=== PATIENT | female | born 1975 | race Caucasian/White ===

== ENCOUNTER → 2019-05-13 14:16 | Outpatient (BNVA) | payer MEDICAID, SELFPAY | PROVIDERS: Visit Provider Family Medicine | DX: L67.8 Other hair color and hair shaft abnormalities (principal) | CPT/HCPCS: 84403; 84443 ==

== ENCOUNTER → 2020-02-02 15:15 | Outpatient (BNVA) | payer MEDICAID, SELFPAY | PROVIDERS: Visit Provider Nurse Practitioner Family | DX: N39.0 Urinary tract infection, site not specified (principal) | CPT/HCPCS: 80053; 81003; 81025; 87077; 87086; 87184 ==

== ENCOUNTER 2020-02-04 12:54 | Emergency (ER) | payer MEDICAID, SELFPAY ==
[2020-02-04 12:56] VITALS: BP 126/77; RESP 18; TEMP 36.8; O2SAT 100; BMI 34.9
[2020-02-04 13:35] LABS: Add Urine Microscopic? YES; Bilirubin Urine Neg (Negative); Blood Urine 2+ (Negative); Glucose Urine UA Norm (Normal); Ketones Urine Negative (Negative); Leukocyte Esterase Urine Trace (Negative); Nitrate Urine Negative (Negative); Protein Urine Neg (Negative); Specific Gravity, Urine 1.025 (1.005-1.030); Urine Appearance Hazy (CLEAR); Urine Color Yellow (Yellow); Urobilinogen Urine Norm (Negative); pH Urine 5 (5-7)
--- NOTE | 2020-02-04 13:43 | ED_ITS ---
HPI - Abdominal Pain General: Chief Complaint: Abdominal Pain Stated Complaint: uti/abdominal pain Time Seen by Provider: 02/04/20 13:42 History of Present Illness: HPI narrative: 44-year-old female patient presents to the emergency department with left flank pain x 5 days. Last menstrual period 01/27/2020, previous menstrual period 12/28/2019, states previous 2 periods have only lasted several days and have been light in nature. She reports saw her primary care provider Sunday, 3 days ago, positive test, completed secondary to light menstrual cycles. Treated for urinary tract infection recently with Bactrim, stopped the medication secondary to results and Rx'd Keflex. She has history of kidney stones, reports intense left flank pain similar to previous episodes. 5 para 3 AB 1 MD elicited complaint: abdominal pain and flank pain (Left) Pertinent past history: kidney stones Onset (ago): day(s) Pain Consistency: intermittent Location: LLQ and L flank Severity: moderate Quality: cramping, stabbing and aching Radiation: LLQ and L flank Exacerbating factors: nothing Relieving factors: nothing Associated Symptoms: Reports chills, GI cramping, fever(s), nausea, vomiting and other (vaginal bleeding - light x 2 days); Denies dysuria Review of Systems General: Reports: 10 or more systems reviewed and unremarkable except in HPI and below Const: Reports: fever(s) and chills; Denies: diaphoresis Eyes: Denies: blurry vision or eye redness ENMT: Denies: throat pain, dental pain or disequilibrium Card: Denies: chest pain, palpitations or irregular heart rhythm Resp: Denies: dyspnea, productive cough, non-productive cough or wheezing GI: Reports: abdominal pain, nausea, vomiting, GI cramping and other (vaginal bleeding - light x 2 days) : Reports: flank pain (left), urinary urgency, vaginal bleeding and change in menstrual flow; Denies: difficulty voiding or dysuria Musc: Denies: back pain Skin/Breast: Denies: rash or pruritus Neuro: Denies: headache(s), weakness in extremities or behavioral changes [place]/Lymph: Denies: easy bruising PFSH ED PFSH: Medical History (Updated 02/04/20 @ 17:29 by YOLANDA Ortiz) History of asthma History of renal calculi Normal Pap smear 12/2017 Surgical History Hx of lithotripsy Family History Other Myocardial infarction Social History Smoking and tobacco status: never smoked Second hand smoke exposure: No Alcohol intake: current Alcohol intake frequency: holidays/special occasions only Lives independently: Yes Marital status: History of recent travel: No Current gender identity: Female Physical Exam Const: COMMON NORMALS: no acute distress, patient oriented x3, healthy appearing and alert GENERAL APPEARANCE: cooperative, well kempt and well hydrated ORIENTATION/CONSCIOUSNESS: Yes awake, Yes oriented to person, Yes oriented to place and Yes oriented to time HENMT: COMMON NORMALS: normocephalic, Normal external nose present and moist oral mucous membranes HEAD & SCALP: normocephalic NOSE: Normal external nose present Eye: COMMON NORMALS: Equal, round and reactive pupils present and EOMs intact bilaterally GENERAL EYE: appearance normal, both eyes and all related structures PUPIL: Yes Equal, round and reactive pupils present Neck/C-Spine: COMMON NORMALS: full ROM and no lymphadenopathy GENERAL: Yes normal visual inspection and Yes trachea midline CERVICAL SPINE: Yes cervical ROM normal Lymph: LYMPHATIC: no lymphadenopathy noted Chest: COMMONS NORMALS: normal inspection of the chest Resp: COMMON NORMALS: normal respiratory effort and clear to auscultation bilaterally EFFORT & INSPECTION: Yes able to speak in complete sentences AUSCULTATION: clear to auscultation bilaterally Cardio: COMMON NORMALS: regular rhythm, S1 normal heart sound present, S2 normal heart sound present and Peripheral pulses 2+ throughout RHYTHM: regular rhythm HEART SOUNDS: S1 normal heart sound present and S2 normal heart sound present PERIPHERAL PULSES: Peripheral pulses 2+ throughout GI: COMMON NORMALS: Soft to palpation and non-tender INSPECTION: Yes normal to inspection PALPATION: Yes Soft to palpation and Yes Firmness to palpation present (GI) : COMMON NORMALS: Yes normal external appearance, Yes normal appearance of the vagina and Yes normal bimanual exam BLADDER/KIDNEY EXAM: Yes bladder normal to palpation EXTERNAL FEMALE EXAM: Yes normal appearance of the urethra SPECULUM EXAM - VAGINA: No laceration, No lesion, Yes vaginal bleeding (spotting) Amount: spotting and No tenderness SPECULUM EXAM - CERVIX: Yes Cervical os closed, Yes mucoid cervix and No Cervical tenderness present BIMANUAL EXAM - VAGINA & UTERUS: Yes normal bimanual exam, Yes normal palpation, Yes normal palpation, No cervical motion tenderness, No Cervical tenderness present, Yes bladder normal to palpation, Yes non-tender and No Uterine tenderness OB/EXTERNAL & SPECULUM: vaginal bleeding (spotting) Back/Pelvis: COMMON NORMALS: thoracic and lumbar spine normal to inspection Extremity: COMMON NORMALS: normal to inspection and capillary refill normal Neuro: COMMON NORMALS: patient oriented x3 and no focal motor deficits SENSORIUM/ORIENTATION: Yes alert, Yes oriented to person, Yes oriented to place and Yes oriented to time Psych: COMMON NORMALS: mental status grossly normal, Normal thought process present and cooperative APPEARANCE: Yes well kempt ACTIVITY/MOTOR BEHAVIOR: Yes appropriate eye contact THOUGHT PROCESS: Normal thought process present Skin: COMMON NORMALS: no rashes or lesions noted and turgor normal GENERAL SKIN EXAM: no rashes or lesions noted and turgor normal Course ED course: 44 year old presents to the clinic with left flank pain, vag bleeding, + with LMP 01/27/2020. H/O renal stones, renal US normal w/o hydronephrosis, treated with Rocephin in the ED for UTI. OB US w/o interuterine gestation identified. B-HCG 145 - early vs ectopic not ruled out - n/v and pain controlled with Zofran and Morphine - able to tolerate PO fluids in the ED - feeling better - discussion with patient with findings and plan, agrees to f/u with Dr Burnett in 2 days for repeat serology for B-HCG. UTI treated with IV Rocephin due to initial UA results (clean catch), cath UA resulted w/o leukoestrace/bacteria. She agrees to return to the ED for increased vaginal bleeding, flank pain/vomiting not controlled with hydrocodone or Zofran. Case d/w Dr Carlos, Rx for hydrocodone given. Will treat with Omnicef for UTI. Consultations: Consultation #1: Dr Burnett, [place] - case d/w Dr Burnett - results of pelvic and renal US with serology testing reviewed - advised to have patient f/u in clinic in 2 days for repeat HcGQuant. Advised patient to refrain from strenuous activity and sex until cleared - she will need f/u every 2 days until BHcg is >1500. Advised to treat UTI and strain urine - control pain. Vital Signs: Vital signs: Vital Signs Temperature 98.2 F 02/04/20 12:56 Pulse Rate 110 H 02/04/20 13:57 Respiratory Rate 18 02/04/20 17:17 Blood Pressure 146/107 02/04/20 16:50 Pulse Oximetry 100 02/04/20 16:50 MDM - Abdominal Pain Lab Data: Labs: Lab Results 02/04/20 02/04/20 02/04/20 Range/Units 13:10 13:36 13:36 WBC (4.0-10.0) 10^3/ uL RBC (4.1-5.3) 10^6/u L Hgb (11.5-15.3) g/dL Hct (37.0-47.0) % MCV (81-99) fL MCH (28.0-34.0) pg MCHC (30.0-36.0) g/dL RDW (12.1-15.1) % Plt Count (130-400) 10^3/c mm MPV (7.4-10.4) fL Neut % (Auto) % Lymph % (Auto) % [place] % (Auto) % Eos % (Auto) % Baso % (Auto) % Neut # (Auto) (1.8-7.7) 10^3/u L Lymph # (Auto) (0.8-4.8) 10^3/u L [place] # (Auto) (0.2-0.9) 10^3/u L Eos # (Auto) (0.0-0.8) 10^3/u L Baso # (Auto) (0.0-0.1) 10^3/u L Nucleated RBC % (a uto) % Nucleated RBCs # /100WBC Sodium 135 L (136-145) mmol/L Potassium 3.8 (3.5-5.1) mmol/L Chloride 100 (98-107) mmol/L Carbon Dioxide 20 L (22-29) mmol/L Anion Gap 18.8 (5-19) BUN 7 (6-20) mg/dL Creatinine 0.8 (0.5-0.9) mg/dL GFR Calculation 78.3 L (90-130) mL/min Glucose 125 H (65-115) mg/dL Calculated Osmolal ity 279 L (285-295) mOsm/k g Calcium 9.5 (8.5-10.5) mg/dL Total Bilirubin 0.3 (0.15-1.2) mg/dL AST 16 (0-32) U/L ALT 21 (0-33) U/L Alkaline Phosphata se 114 H (35-105) IU/L Total Protein 8.2 (6.6-8.7) g/dL Albumin 4.4 (3.5-5.2) g/dL Globulin 3.8 (1.3-4.6) g/dL Ser , Buck i-Qnt 143.20 mIU/mL Urine Color Yellow (Yellow) Urine Appearance Hazy A (CLEAR) Urine pH 5 (5-7) Ur Specific Gravit y 1.025 (1.005-1.030) Urine Protein Neg (Negative) Urine Glucose (UA) Norm (Normal) Urine Ketones Negative (Negative) Urine Blood 2+ H (Negative) Urine Nitrate Negative (Negative) Urine Bilirubin Neg (Negative) Urine Urobilinogen Norm (Negative) mg/dL Ur Leukocyte Brittni ase Trace H (Negative) Urine RBC 0-4 H (0-2) /hpf Urine WBC 25-40 H (0-5) /hpf Ur Squamous Epith Cells 0-4 H (0-5) /hpf Amorphous Sediment Not Reportable Urine Bacteria 2+ H (NONE) /hpf Urine Mucus 2+ /hpf Blood Type A Positive Rho(D) Type Positive 02/04/20 02/04/20 Range/Units 13:36 16:40 WBC 18.2 H (4.0-10.0) 10^3/ uL RBC 4.60 (4.1-5.3) 10^6/u L Hgb 13.1 (11.5-15.3) g/dL Hct 40.9 (37.0-47.0) % MCV 88.9 (81-99) fL MCH 28.5 (28.0-34.0) pg MCHC 32.0 (30.0-36.0) g/dL RDW 12.2 (12.1-15.1) % Plt Count 237 (130-400) 10^3/c mm MPV 10.2 (7.4-10.4) fL Neut % (Auto) 86.2 % Lymph % (Auto) 8.4 % [place] % (Auto) 4.7 % Eos % (Auto) 0.1 % Baso % (Auto) 0.2 % Neut # (Auto) 15.67 H (1.8-7.7) 10^3/u L Lymph # (Auto) 1.5 (0.8-4.8) 10^3/u L [place] # (Auto) 0.9 (0.2-0.9) 10^3/u L Eos # (Auto) 0.0 (0.0-0.8) 10^3/u L Baso # (Auto) 0.0 (0.0-0.1) 10^3/u L Nucleated RBC % (a uto) 0 % Nucleated RBCs # 0.0 /100WBC Sodium (136-145) mmol/L Potassium (3.5-5.1) mmol/L Chloride (98-107) mmol/L Carbon Dioxide (22-29) mmol/L Anion Gap (5-19) BUN (6-20) mg/dL Creatinine (0.5-0.9) mg/dL GFR Calculation (90-130) mL/min Glucose (65-115) mg/dL Calculated Osmolal ity (285-295) mOsm/k g Calcium (8.5-10.5) mg/dL Total Bilirubin (0.15-1.2) mg/dL AST (0-32) U/L ALT (0-33) U/L Alkaline Phosphata se (35-105) IU/L Total Protein (6.6-8.7) g/dL Albumin (3.5-5.2) g/dL Globulin (1.3-4.6) g/dL Ser , Buck i-Qnt mIU/mL Urine Color Yellow (Yellow) Urine Appearance Clear (CLEAR) Urine pH 6 (5-7) Ur Specific Gravit y 1.015 (1.005-1.030) Urine Protein Neg (Negative) Urine Glucose (UA) Norm (Normal) Urine Ketones Negative (Negative) Urine Blood 3+ H (Negative) Urine Nitrate Negative (Negative) Urine Bilirubin Neg (Negative) Urine Urobilinogen Neg (Negative) mg/dL Ur Leukocyte Brittni ase Negative (Negative) Urine RBC (0-2) /hpf Urine WBC (0-5) /hpf Ur Squamous Epith Cells (0-5) /hpf Amorphous Sediment Urine Bacteria (NONE) /hpf Urine Mucus /hpf Blood Type Rho(D) Type Imaging Data ^: US: Radiologist's impression: [address] [address] Ultrasound Report Signed Patient: Jose Eduardo Turner Unit #: [id number] : 1975 Age/Sex: 44 / F ADM Date: 02/04/20 Loc: ER Room/Bed: Attending Dr: Ordering Provider/Ordering MD: Della Gomes Date of Service: 02/04/20 Procedure(s): US renal BI with bladder Accession Number(s): [id number] Report Number: [id number] WS: [id number] RENAL ULTRASOUND URINARY BLADDER ULTRASOUND HISTORY: kidney stone + COMPARISON: None available. TECHNIQUE: 2-D and color Doppler imaging of the kidney submitted. Right kidney: 10.7 cm x 5.1 cm x 3.8 cm. Normal echogenicity with no hydronephrosis or mass. Left kidney: 13.1 cm x 6.6 cm x 5.6 cm. Normal echogenicity with no hydronephrosis or mass. Aorta: Normal. Urinary Bladder: Nondistended urinary bladder. No free fluid. US/US renal BI with bladder IMPRESSION: Normal renal ultrasound. Dictated By: Jahaira Huff DO Signed By: Jahaira Huff DO Signed Date/Time: 02/04/201424 DD/ 1424 US OB: Radiologist's impression: [address] [address] Ultrasound Report Signed Patient: Jose Eduardo Turner Unit #: [id number] : 1975 Age/Sex: 44 / F ADM Date: 02/04/20 Loc: ER Room/Bed: Attending Dr: Ordering Provider/Ordering MD: Della Gomes Date of Service: 02/04/20 Procedure(s): US OB <=14 wk fetus w transvag Accession Number(s): [id number] Report Number: [id number] WS: [id number] EARLY OBSTETRICAL ULTRASOUND (<14 WEEKS). HISTORY: + hcg with vag bleed COMPARISON: None available. Uterus is enlarged and heterogeneous and anteverted. Thickened endometrium measuring up to 2.0 cm. No gestational sac is identified. Fibroid in the LEFT lateral myometrium measures 1.8 x 1.8 x 2.4 cm. RIGHT ovary measures 2.9 x 2.6 x 2.8 cm. There is a corpus luteum cyst in the RIGHT ovary measuring 1.6 x 1.6 x 1.5 cm. Normal Doppler in the visualized RIGHT ovary. LEFT ovary measures 3.3 x 1.7 x 2.8 cm. Normal Doppler. US/US OB <=14 wk fetus w transvag IMPRESSION: 1. No intrauterine gestation identified. If there is a positive beta hCG ectopic is not excluded. 2. Small fibroid along the posterior lateral myometrium. 3. Thick wall corpus lucidum cyst RIGHT ovary. 4. No free fluid. Dictated By: Jahaira Huff DO Signed By: Jahaira Huff DO Signed Date/Time: 02/04/201605 DD/ 02 Discharge Plan Discharge Patient Disposition: Home Clinical Impression: Vaginal bleeding during , Left flank pain UTI (urinary tract infection) Qualifiers: Urinary tract infection type: acute cystitis Hematuria presence: with hematuria Qualified Code(s): N30.01 - Acute cystitis with hematuria Condition: Stable Prescriptions: New cefdinir 300 mg capsule 300 mg PO BID Qty: 20 RF: 0 hydrocodone-acetaminophen 5-325 mg tablet 1 tab PO Q4H PRN (Reason: pain) Qty: 14 RF: 0 Zofran 4 mg tablet 4 mg PO QID PRN (Reason: nausea and vomiting) Qty: 10 RF: 0 Discontinued cephalexin [Keflex] 500 mg capsule 500 mg PO TID 7 Days Qty: 21 RF: 0 No Action albuterol sulfate 90 mcg/actuation HFA aerosol inhaler 2 puff INHALATION Q6H PRNRF: 0 fluticasone propion-salmeterol [Advair Diskus] 250-50 mcg/dose blister with device 1 inh INHALATION BID Qty: 60 RF: 5 montelukast [Singulair] 10 mg tablet 10 mg PO DAILY Qty: 30 RF: 5 Vaniqa 13.9 % cream 1 applic TOPICAL BID Qty: 45 RF: 2 Discharge Orders: Discharge Order (Routine); Ordered 02/04/20 Ordered By: Della Gomes Discharge Diet: Advance as tolerated and Clear Liquid Discharge Activity: Limit activity as instructed Patient Instructions: Urinary Tract Infection in Women (ED), Renal Colic (ED), Abdominal Pain (ED), Abdominal Pain in (ED) Activity Restrictions/Additional Instructions: Strain urine and collect stone if you pass it follow up with Dr Burnett in 2 days for repeat Beta-HCG information services manager will contact you with appt time take Cefdinir until all gone drink plenty of fluids return to the ED if you experience increased vaginal bleeding, worsening abdominal pain, vomiting with use of Zofran NO SEX or strenuous activity until cleared by Dr Burnett Coding Level of Care Code ED Veterans' Coordinator for Zeinabg Fwd Exam Comprehensive
--- NOTE | 2020-02-04 13:44 | US_ITS ---
NOTE: Report was unsigned for reason: Order was edited. Original Signature date and time was: 02/04/20 7031 WS: [id number] RENAL ULTRASOUND URINARY BLADDER ULTRASOUND HISTORY: kidney stone + COMPARISON: None available. TECHNIQUE: 2-D and color Doppler imaging of the kidney submitted. Right kidney: 10.7 cm x 5.1 cm x 3.8 cm. Normal echogenicity with no hydronephrosis or mass. Left kidney: 13.1 cm x 6.6 cm x 5.6 cm. Normal echogenicity with no hydronephrosis or mass. Aorta: Normal. Urinary Bladder: Nondistended urinary bladder. No free fluid. [facility] US/US renal BI with bladder IMPRESSION: Normal renal ultrasound.
--- NOTE | 2020-02-04 13:44 | US_ITS ---
WS: [id number] EARLY OBSTETRICAL ULTRASOUND (<14 WEEKS). HISTORY: + hcg with vag bleed COMPARISON: None available. Uterus is enlarged and heterogeneous and anteverted. Thickened endometrium measuring up to 2.0 cm. No gestational sac is identified. Fibroid in the LEFT lateral myometrium measures 1.8 x 1.8 x 2.4 cm. RIGHT ovary measures 2.9 x 2.6 x 2.8 cm. There is a corpus luteum cyst in the RIGHT ovary measuring 1 .6 x 1.6 x 1.5 cm. Normal Doppler in the visualized RIGHT ovary. LEFT ovary measures 3.3 x 1.7 x 2.8 cm. Normal Doppler. US/US OB <=14 wk fetus w transvag IMPRESSION: 1. No intrauterine gestation identified. If there is a positive beta hCG ectop ic is not excluded. 2. Small fibroid along the posterior lateral myometrium. 3. Thick wall corpus lucidum cyst RIGHT ovary. 4. No free fluid.
[2020-02-04] MEDS: ondansetron 2 mg/ML SDV 2 mL 4 MG IVP (13:45)
[2020-02-04] MEDS: sodium chloride 0.9% 1,000 ML 999 ML IV (13:45)
[2020-02-04 13:47] LABS: Bacteria Urine 2+ /hpf; Mucus Urine 2+ /hpf; RBC Urine 0-4 /hpf (0-2); Squamous Epithelial Cell Urine 0-4 /hpf (0-5); WBC Urine 25-40 /hpf (0-5)
[2020-02-04 13:48] VITALS: BP 103/73; PULSE 115; RESP 18; O2SAT 100; O2SAT 99
[2020-02-04 13:48] LABS: Add Urine Culture? Yes
[2020-02-04] MEDS: morphine 4 mg/mL SDV 1 mL 2 MG IVP ×2 (13:48→17:17)
[2020-02-04 13:57] VITALS: PULSE 110; O2SAT 97
--- NOTE | 2020-02-04 13:59 | PC.NURSE ---
PATIENT TRANSPORTED TO US VIA WHEELCHAIR. VS WNL, PT AXO 3. NO CONCERNS NOTED.
[2020-02-04 14:02] LABS: Basophils % 0.2 %; Eosinophils % 0.1 %; Hematocrit 40.9 % (37.0-47.0); Hemoglobin 13.1 g/dL (11.5-15.3); Lymphocytes # 1.5 10^3/uL (0.8-4.8); Lymphocytes % 8.4 %; Mean Corpuscular Hemoglobin 28.5 pg (28.0-34.0); Mean Corpuscular Volume 88.9 fL (81-99); Mean Platelet Volume 10.2 fL (7.4-10.4); Monocytes # 0.9 10^3/uL (0.2-0.9); Monocytes % 4.7 %; Neutrophils # 15.67 10^3/uL (1.8-7.7); Neutrophils % 86.2 %; Nucleated Red Blood Cells % 0 %; Platelet Count 237 10^3/cmm (130-400); Red Cell Distribution Width 12.2 % (12.1-15.1); White Blood Count 18.2 10^3/uL (4.0-10.0)
[2020-02-04] MEDS: cefTRIAXone 1,000 MG in sodium chloride 0.9% (plus) 50 ML 100 MG IV (15:06)
[2020-02-04 15:08] LABS: Alanine Aminotransferase 21 U/L (0-33); Albumin Level 4.4 g/dL (3.5-5.2); Alkaline Phosphatase 114 IU/L (35-105); Anion Gap 18.8 (5-19); Aspartate Amino Transferase 16 U/L (0-32); Blood Urea Nitrogen 7 mg/dL (6-20); Calcium 9.5 mg/dL (8.5-10.5); Carbon Dioxide 20 mmol/L (22-29); Chloride 100 mmol/L (98-107); Globulin 3.8 g/dL (1.3-4.6); Glomerular Filtration Rate 78.3 mL/min (90-130); Glucose 125 mg/dL (65-115); Osmolality Calculated 279 mOsm/kg (285-295); Potassium 3.8 mmol/L (3.5-5.1); Sodium 135 mmol/L (136-145); Total Bilirubin 0.3 mg/dL (0.15-1.2); Total Protein 8.2 g/dL (6.6-8.7)
[2020-02-04 16:50] VITALS: BP 146/107; RESP 16; O2SAT 100
[2020-02-04 16:50] LABS: Bilirubin Urine Neg (Negative); Blood Urine 3+ (Negative); Glucose Urine UA Norm (Normal); Ketones Urine Negative (Negative); Nitrate Urine Negative (Negative); Protein Urine Neg (Negative); Specific Gravity, Urine 1.015 (1.005-1.030); Urine Appearance Clear (CLEAR); Urine Color Yellow (Yellow); pH Urine 6 (5-7)
[2020-02-04 16:51] LABS: Add Urine Microscopic? YES; Leukocyte Esterase Urine Negative (Negative); Urobilinogen Urine Neg (Negative)
[2020-02-04 17:17] VITALS: RESP 18
[2020-02-04] MEDS: HYDROcodone-acetaminophen 5-325 mg Tablet 1 TAB PO (17:57)
[2020-02-04 17:58] VITALS: BP 123/76; PULSE 120; RESP 17; O2SAT 93
--- NOTE | 2020-02-06 09:27 | DCPLANNER ---
stadium manager had message to schedule a follow up appointment for patient with [facility]. stadium manager called [facility], spoke with Judy, gave clinic patients information. stadium manager was told that patients information would be printed and reviewed. Clinic will call patient with appointment information.
--- NOTE | 2020-02-09 12:34 | DCPLANNER ---
Patient has a follow up appointment scheduled for Sunday, February 09, [address] at 3:[address] Burnett. Clinic will call patient with appointment information.
--- NOTE | 2020-02-12 07:50 | DCPLANNER ---
Patient had a follow up appointment scheduled for 02.09.20 with [facility] - patient did attend appointment.
== END 2020-02-04 18:07 | disposition home or self-care (01) ==
PROVIDERS: Emergency Provider Nurse Practitioner Family
DX: O46.91 Antepartum hemorrhage, unspecified, first trimester (principal); O23.11 Infections of bladder in pregnancy, first trimester; Z3A.01 Less than 8 weeks gestation of pregnancy
CPT/HCPCS: 12345; 51701; 76770; 76801; 76817; 76857; 80053; 81001; 84702; 85025; 86900; 87086; 87210; 96361; 96365; 96375; 96376; 99284; E0352; J0696; J2270; J2405; J7030

== ENCOUNTER → 2020-02-06 09:30 | Outpatient (BNVA) | payer MEDICAID, SELFPAY | PROVIDERS: Visit Provider Obstetrics & Gynecology | DX: O46.90 Antepartum hemorrhage, unspecified, unspecified trimester (principal) | CPT/HCPCS: 84702 ==

== ENCOUNTER 2020-02-07 14:14 | Emergency (ER) | payer MEDICAID, SELFPAY ==
[2020-02-07 14:21] VITALS: BP 139/80; PULSE 103; RESP 14; TEMP 36.7; O2SAT 99; BMI 34.5
[2020-02-07 14:57] LABS: Basophils # 0.1 10^3/uL (0.0-0.1); Basophils % 0.8 %; Eosinophils # 0.2 10^3/uL (0.0-0.8); Eosinophils % 1.6 %; Hemoglobin 12.9 g/dL (11.5-15.3); Lymphocytes # 2.4 10^3/uL (0.8-4.8); Lymphocytes % 25.3 %; Mean Corpuscular HGB Conc 32.3 g/dL (30.0-36.0); Mean Corpuscular Hemoglobin 28.3 pg (28.0-34.0); Mean Corpuscular Volume 87.7 fL (81-99); Mean Platelet Volume 9.8 fL (7.4-10.4); Monocytes # 0.7 10^3/uL (0.2-0.9); Monocytes % 7.9 %; Neutrophils # 5.94 10^3/uL (1.8-7.7); Neutrophils % 63.9 %; Nucleated Red Blood Cells % 0 %; Platelet Count 295 10^3/cmm (130-400); Red Blood Count 4.56 10^6/uL (4.1-5.3); Red Cell Distribution Width 12.4 % (12.1-15.1); White Blood Count 9.3 10^3/uL (4.0-10.0)
--- NOTE | 2020-02-07 14:57 | W.ED.PREGNAN ---
HPI - General: Chief complaint: Vaginal Bleeding Stated complaint: Possible Ectopic Time Seen by Provider: 02/07/20 14:29 History of Present Illness: HPI Narrative: 44-year-old female presents emergency room complaining of cramping and discomfort. She was seen earlier this week had a missed AB on follow-up her beta-hCG is decreasing she still having cramping and vaginal bleeding she denies dysuria urgency or frequency no lightheadedness or dizziness. MD Complaint: vaginal bleeding Onset (ago): day(s) Pain Consistency: intermittent Location: pelvis Severity: moderate Quality: Cramping Radiation: pelvis Relieving factors: none Exacerbating factors: none Vaginal bleeding: heavy and clots Date of Last Menstrual Period: 12/28/19 Patient : Yes OB History - Current : other (Missed AB seen earlier in the week beta-hCG declining) OB History - Previous Pregnancies: miscarriage Associated symptoms: Deny abdominal pain, dyspareunia, dysuria, headache(s), malaise, nausea, rash, seizures, short of breath, syncope, vaginal discharge, visual changes, vomiting or weakness Review of Systems Const: Denies: malaise ENMT: Denies: throat pain, ear or mastoid pain, nasal discharge or nasal congestion Card: Denies: syncope Resp: Denies: dyspnea, productive cough or non-productive cough GI: Denies: abdominal pain, nausea or vomiting : Denies: dysuria, vaginal discharge or dyspareunia Skin/Breast: Denies: rash or pruritus Neuro: Denies: headache(s) PFSH ED PFSH: Medical History History of asthma History of renal calculi Normal Pap smear 12/2017 Surgical History Hx of lithotripsy Family History Other Myocardial infarction Social History Smoking and tobacco status: never smoked Second hand smoke exposure: No Alcohol intake: current Alcohol intake frequency: holidays/special occasions only Lives independently: Yes Marital status: History of recent travel: No Current gender identity: Female Female Reproductive History: Date of last menstrual period: 12/28/19 Physical Exam Const: COMMON NORMALS: no acute distress GENERAL APPEARANCE: cooperative and comfortable ORIENTATION/CONSCIOUSNESS: Yes awake, Yes oriented to person, Yes oriented to place and Yes oriented to time HENMT: COMMON NORMALS: normocephalic, atraumatic and hearing grossly normal bilaterally HEAD & SCALP: normocephalic and atraumatic Neck/C-Spine: COMMON NORMALS: no JVD Resp: COMMON NORMALS: normal respiratory effort, No retractions, No use of accessory muscles and clear to auscultation bilaterally AUSCULTATION: clear to auscultation bilaterally Cardio: COMMON NORMALS: no JVD, regular rate, regular rhythm and No murmurs present (Cardio) RATE: regular rate RHYTHM: regular rhythm GI: COMMON NORMALS: Soft to palpation and No hepatosplenomegaly present AUSCULTATION: Yes normoactive bowel sounds PALPATION: Yes Soft to palpation, No Tenderness to palpation present (GI), No Guarding due to palpation present (GI) and Yes No hepatosplenomegaly present Extremity: COMMON NORMALS: normal to inspection, capillary refill normal, no clubbing, cyanosis or edema, no calf tenderness and no pedal edema Neuro: SENSORIUM/ORIENTATION: Yes oriented to person, Yes oriented to place and Yes oriented to time Skin: COMMON NORMALS: no rashes or lesions noted GENERAL SKIN EXAM: no rashes or lesions noted Course Vital Signs: Vital signs: Vital Signs Temperature 98.1 F 02/07/20 14:21 Pulse Rate 103 H 02/07/20 14:21 Respiratory Rate 18 02/07/20 15:12 Blood Pressure 139/80 02/07/20 14:21 Pulse Oximetry 99 02/07/20 14:21 MDM - OB/Uterine Contractions MDM Narrative: Medical decision making narrative: Beta-hCG continues to drop no active bleeding, hemoglobin stable at this time follow-up with WILDLIFE SCIENCE PROFESSOR. I had formulated the patient's discharge information and was attending to another patient patient was discharged before I could discuss surgery results with her. We will try to contact her by phone to review laboratory findings today. Lab Data: Labs: Lab Results 02/07/20 02/07/20 02/07/20 Range/Units 14:43 14:43 14:43 WBC 9.3 (4.0-10.0) 10^3/ uL RBC 4.56 (4.1-5.3) 10^6/u L Hgb 12.9 (11.5-15.3) g/dL Hct 40.0 (37.0-47.0) % MCV 87.7 (81-99) fL MCH 28.3 (28.0-34.0) pg MCHC 32.3 (30.0-36.0) g/dL RDW 12.4 (12.1-15.1) % Plt Count 295 (130-400) 10^3/c mm MPV 9.8 (7.4-10.4) fL Neut % (Auto) 63.9 % Lymph % (Auto) 25.3 % Iron % (Auto) 7.9 % Eos % (Auto) 1.6 % Baso % (Auto) 0.8 % Neut # (Auto) 5.94 (1.8-7.7) 10^3/u L Lymph # (Auto) 2.4 (0.8-4.8) 10^3/u L Iron # (Auto) 0.7 (0.2-0.9) 10^3/u L Eos # (Auto) 0.2 (0.0-0.8) 10^3/u L Baso # (Auto) 0.1 (0.0-0.1) 10^3/u L Nucleated RBC % (a uto) 0 % Nucleated RBCs # 0.0 /100WBC Sodium 136 (136-145) mmol/L Potassium 3.6 (3.5-5.1) mmol/L Chloride 101 (98-107) mmol/L Carbon Dioxide 22 (22-29) mmol/L Anion Gap 16.6 (5-19) BUN 9 (6-20) mg/dL Creatinine 0.7 (0.5-0.9) mg/dL GFR Calculation 91.3 (90-130) mL/min Glucose 127 H (65-115) mg/dL Calculated Osmolal ity 282 L (285-295) mOsm/k g Calcium 9.6 (8.5-10.5) mg/dL Ser , Buck i-Qnt 89.98 mIU/mL Discharge Plan Discharge Patient Disposition: Home Clinical Impression: Miscarriage Condition: Stable Prescriptions: New diclofenac sodium 75 mg tablet,delayed release (DR/EC) 75 mg PO Q12H PRN (Reason: pain) Qty: 20 RF: 0 No Action albuterol sulfate 90 mcg/actuation HFA aerosol inhaler 2 puff INHALATION Q6H PRN (Reason: Shortness Of Breath) RF: 0 fluticasone propion-salmeterol [Advair Diskus] 250-50 mcg/dose blister with device 1 inh INHALATION BID Qty: 60 RF: 5 montelukast [Singulair] 10 mg tablet 10 mg PO DAILY Qty: 30 RF: 5 cefdinir 300 mg capsule 300 mg PO BID Qty: 20 RF: 0 ondansetron HCl [Zofran] 4 mg tablet 4 mg PO QID PRN (Reason: nausea and vomiting) Qty: 10 RF: 0 Discharge Orders: Discharge Order (Routine); Ordered 02/07/20 Ordered By: Suleman Carlos Discharge Diet: Usual diet Discharge Activity: Increase activity as tolerated Discharge Date/Time: 02/07/20 16:48 Coding Level of Care Code ED Professor Of Education for Chg Fwd Exam Comprehensive
[2020-02-07] MEDS: ketorolac 30 mg/mL INJ IVP (15:11)
[2020-02-07 15:12] VITALS: RESP 18
[2020-02-07] MEDS: morphine 4 mg/mL SDV 1 mL IVP (15:12)
[2020-02-07] MEDS: ondansetron 2 mg/ML SDV 2 mL 4 MG IVP (15:13)
[2020-02-07 15:19] LABS: Anion Gap 16.6 (5-19); Blood Urea Nitrogen 9 mg/dL (6-20); Calcium 9.6 mg/dL (8.5-10.5); Carbon Dioxide 22 mmol/L (22-29); Chloride 101 mmol/L (98-107); Glomerular Filtration Rate 91.3 mL/min (90-130); Glucose 127 mg/dL (65-115); Osmolality Calculated 282 mOsm/kg (285-295); Potassium 3.6 mmol/L (3.5-5.1); Sodium 136 mmol/L (136-145)
[2020-02-07 15:29] LABS: HCG Quantitative 89.98 mIU/mL
== END 2020-02-07 16:48 | disposition home or self-care (01) ==
PROVIDERS: Emergency Provider Family Medicine
DX: O03.9 Complete or unspecified spontaneous abortion without complication (principal)
CPT/HCPCS: 12345; 80048; 84702; 85025; 96374; 96375; 99281; 99283; J1885; J2270; J2405

== ENCOUNTER → 2020-02-09 16:07 | Outpatient (BNVA) | payer MEDICAID, SELFPAY | PROVIDERS: Visit Provider Obstetrics & Gynecology | DX: O03.4 Incomplete spontaneous abortion without complication (principal); R10.32 Left lower quadrant pain | CPT/HCPCS: 76817; 84702; 88305 ==

== ENCOUNTER → 2020-04-28 13:30 | Outpatient (BNVA) | payer MEDICAID, SELFPAY | PROVIDERS: Visit Provider Nurse Practitioner Family | DX: Z34.90 Encounter for supervision of normal pregnancy, unspecified, unspecified trimester (principal); Z3A.01 Less than 8 weeks gestation of pregnancy | CPT/HCPCS: 81025 ==

== ENCOUNTER → 2020-08-10 14:26 | Outpatient (BNVA) | payer MEDICAID, SELFPAY | PROVIDERS: Visit Provider Nurse Practitioner Family | DX: Z30.09 Encounter for other general counseling and advice on contraception (principal); M79.671 Pain in right foot; M79.672 Pain in left foot; M25.531 Pain in right wrist | CPT/HCPCS: 73110; 73630 ==

== ENCOUNTER → 2021-02-01 11:46 | Outpatient (BNVA) | payer MEDICAID, SELFPAY | PROVIDERS: Visit Provider Nurse Practitioner | DX: Z20.822 Contact with and (suspected) exposure to COVID-19 (principal) | CPT/HCPCS: 87635 ==

== ENCOUNTER 2021-09-17 00:27 | Emergency (ER) | payer MEDICAID, SELFPAY ==
[2021-09-17 00:28] VITALS: BP 146/72; PULSE 90; RESP 22; TEMP 36.7; O2SAT 96; BMI 34.3
--- NOTE | 2021-09-17 00:42 | ED_ITS ---
HPI - Allergic Reaction General: Chief complaint: Allergic Reaction Stated complaint: allergic reaction Time Seen by Provider: 09/17/21 00:29 History of Present Illness: HPI narrative: Patient is a 46-year-old female comes to the ED with allergic reaction. Past medical history of asthma. Symptoms started approximately 2 hours ago. She was laying in bed and then developed very itchy full-body rash. She also endorsed feeling a little bit of short of breath and some wheezing. Patient used her albuterol inhaler and her symptoms improved. She does not have any shortness of breath or wheezing currently. Denies any lip, tongue swelling or throat tighte jackie. She did not take any Benadryl before coming to the ED. Denies any history of allergic reactions. She is unsure what caused symptoms says she was laying in bed when they started. Denies any recent medication changes, food allergies or environmental/contact allergies. Denies any recent changes in her soaps, detergents or lotions. Denies any fevers, nausea/vomiting, abdominal pain, bladder or bowel symptoms. Associated symptoms: Deny abdominal pain, nausea or vomiting Review of Systems Const: Denies: fever(s), chills or fatigue Eyes: Denies: change in vision or eye discomfort ENMT: Denies: throat pain, odynophagia, nasal discharge or nasal congestion Card: Denies: chest pain, palpitations, edema, swelling of feet/ankles, dyspnea on exertion or orthopnea Resp: Denies: dyspnea, productive cough or non-productive cough GI: Denies: abdominal pain, nausea, vomiting, diarrhea, constipation or hematochezia : Denies: flank pain, dysuria or hematuria Musc: Denies: neck pain, back pain or extremity swelling Skin/Breast: Reports: rash (Generalized pruritic rash); Denies: new lesions Neuro: Denies: headache(s), numbness in extremities or weakness in extremities PFSH ED PFSH: Medical History History of asthma History of renal calculi Normal Pap smear 12/2017 Surgical History Hx of lithotripsy Family History Father Hypertension Mother Myocardial infarction Grandmother Breast cancer paternal, DX'd in her 70's Denies family history of Colon cancer Ovarian cancer Diabetes CAD (coronary artery disease) Clotting disorder Hyperlipidemia Anesthesia complication Bleeding disorder Uterine cancer Thyroid condition Stroke Social History Smoking and tobacco status: never smoked Second hand smoke exposure: No Alcohol intake: current Alcohol intake frequency: holidays/special occasions only Alcohol type: beer and hard liquor Lives independently: Yes Marital status: service: No Current occupational status: unemployed History of recent travel: No Current gender identity: Female Special pam needs: No Agree to transfusion: Yes Female Reproductive History: Date of last menstrual period: 09/13/21 Physical Exam Const: COMMON NORMALS: patient oriented x3 and alert GENERAL APPEARANCE: cooperative HENMT: COMMON NORMALS: normocephalic HEAD & SCALP: normocephalic MOUTH: Normal oral and palatal mucosa present, lip normal and tongue normal THROAT: posterior oropharynx normal and uvula midline Neck/C-Spine: COMMON NORMALS: supple GENERAL: Yes normal visual inspection Resp: COMMON NORMALS: normal respiratory effort, No retractions, No use of accessory muscles and clear to auscultation bilaterally AUSCULTATION: clear to auscultation bilaterally and no wheezes Cardio: COMMON NORMALS: regular rate, regular rhythm, S1 normal heart sound present, S2 normal heart sound present, No gallops present (Cardio), No clicks present (Cardio), No murmurs present (Cardio) and Peripheral pulses 2+ throughout RATE: regular rate RHYTHM: regular rhythm HEART SOUNDS: S1 normal heart sound present and S2 normal heart sound present PERIPHERAL PULSE S: Peripheral pulses 2+ throughout GI: COMMON NORMALS: Normal to inspection, nondistended, normoactive bowel sounds present, Soft to palpation, non-tender and no masses PALPATION: Yes Soft to palpation : COMMON NORMALS: Yes no CVA tenderness BLADDER/KIDNEY EXAM: Yes no CVA tenderness Back/Pelvis: COMMON NORMALS: no CVA tenderness Extremity: COMMON NORMALS: normal to inspection Neuro: COMMON NORMALS: patient oriented x3 and moves all extremities SENSORIUM/ORIENTATION: Yes alert Skin: NARRATIVE SKIN EXAM: Patient has a generalized erythemic raised maculopapular rash. Rash is located throughout patient's extremities bilaterally and torso. It is pruritic and non tender. Rash resembles hives GENERAL SKIN EXAM: dry skin Course Reevaluation(s): Reevaluation #1: After patient received IV Solu-Medrol, Pepcid and Benadryl her rash had completely resolved. She has no symptoms and feels normal and ready for discharge home. Time: 01:54 Vital Signs: Vital signs: Vital Signs Temperature 98.0 F 09/17/21 00:28 Pulse Rate 65 09/17/21 03:27 Respiratory Rate 17 09/17/21 03:27 Blood Pressure 146/72 09/17/21 00:28 Pulse Oximetry 99 09/17/21 03:27 MDM - Allergic Reaction Medical Decision Making Patient is a 46-year-old female comes to the ED for full body pruritic rash. No known allergies and has not had any past allergic reactions. Rash is generalized throughout her bilateral extremities and torso. Unknown cause or origin of rash its red, raised maculopapular rash that appears hive-like. De nies any tongue swelling, lip swelling, throat tightening or any trouble breathing. Vitals are stable. Patient was given IV Solu-Medrol, Benadryl and Pepcid and her rash completely resolved here in the ED. She felt back to normal and had no other complaints. She was diagnosed with hives and was discharged home with a prescription for steroids. She is told to follow-up with her PCP in the next week for reevaluation. Return to ED precautions given. Patient understood agree with plan. Lab Data I reviewed the patient's lab results. : 09/17/21 00:46 09/17/21 00:46 Laboratory Results WBC 17.0 10^3/uL (4.0-10.0) H 09/17/21 00:46 RBC 5.09 10^6/uL (4.1-5.3) 09/17/21 00:46 Hgb 14.3 g/dL (11.5-15.3) 09/17/21 00:46 Hct 44.4 % (37.0-47.0) 09/17/21 00:46 MCV 87.2 fl (81-99) 09/17/21 00:46 MCH 28.1 pg (28.0-34.0) 09/17/21 00:46 MCHC 32.2 g/dL (30.0-36.0) 09/17/21 00:46 RDW 12.9 % (12.1-15.1) 09/17/21 00:46 Plt Count 354 10^3/cmm (130-400) 09/17/21 00:46 MPV 10.4 fL (7.4-10.4) 09/17/21 00:46 Neut % (Auto) 67.5 % 09/17/21 00:46 Lymph % (Auto) 24.1 % 09/17/21 00:46 [place] % (Auto) 5.7 % 09/17/21 00:46 Eos % (Auto) 1.8 % 09/17/21 00:46 Baso % (Auto) 0.5 % 09/17/21 00:46 Neut # (Auto) 11.51 10^3/uL (1.8-7.7) H 09/17/21 00:46 Lymph # (Auto) 4.1 10^3/uL (0.8-4.8) 09/17/21 00:46 [place] # (Auto) 1.0 10^3/uL (0.2-0.9) H 09/17/21 00:46 Eos # (Auto) 0.3 10^3/uL (0.0-0.8) 09/17/21 00:46 Baso # (Auto) 0.1 10^3/uL (0.0-0.1) 09/17/21 00:46 Nucleated RBC % (auto) 0 % 09/17/21 00:46 Nucleated RBCs # 0.0 /100WBC 09/17/21 00:46 Sodium Cancelled 09/17/21 00:46 Potassium Cancelled 09/17/21 00:46 Chloride Cancelled 09/17/21 00:46 Carbon Dioxide Cancelled 09/17/21 00:46 Anion Gap Cancelled 09/17/21 00:46 BUN Cancelled 09/17/21 00:46 Creatinine Cancelled 09/17/21 00:46 GFR Calculation Cancelled 09/17/21 00:46 Glucose Cancelled 09/17/21 00:46 Calculated Osmolality Cancelled 09/17/21 00:46 Calcium Cancelled 09/17/21 00:46 Discharge Plan Discharge Patient Disposition: Home Clinical Impression: Hives of unknown origin Condition: Stable Prescriptions: New prednisone 20 mg tablet 20 mg PO BID 3 Days Qty: 6 0RF No Action meloxicam 15 mg tablet 15 mg PO DAILY Qty: 90 0RF Xulane 150-35 mcg/24 hr patch weekly 1 patch transdermal Q7D Qty: 3 11RF Rx Instructions: apply once weekly for 3 weeks of a 4-week cycle montelukast [Singulair] 10 mg tablet 10 mg PO DAILY Qty: 30 5RF Trelegy Ellipta 100-62.5-25 mcg blister with device 1 inh inhalation Q24H Qty: 60 2RF albuterol sulfate [Ventolin HFA] 90 mcg/actuation HFA aerosol inhaler 2 puff inhalation Q6H PRN (Reason: shortness of breath or wheezing) Qty: 8.5 5RF Discharge Orders: Discharge ED (Routine); Ordered 09/17/21 Ordered By: Jhonny Perez Discharge Diet: Regular Discharge Activity: Resume usual activity Patient Instructions: Urticaria (ED) Activity Restrictions/Additional Instructions: Follow-up with medical provider as directed in the next 5 to 7 days reevaluation. Take medications as prescribed. Return to the ER or your medical provider if condition worsens. Please read and understand discharge instructions. Thank you for choosing [facility] for your healthcare needs today. Please realize this is an emergency room and that we are providing you with a medical screening exam and this may not be complete and all inclusive of all the testing and or work up that you may need to determine your ailment or severity of your illness. It is very important that you follow up as instructed or that you return to the Emergency Department should you have concerns or if your condition changes or worsens in any way. Coding Level of Care Code ED Director Medicaid for José Luis Patel Exam Comprehensive
[2021-09-17 00:50] LABS: Basophils # 0.1 10^3/uL (0.0-0.1); Basophils % 0.5 %; Eosinophils # 0.3 10^3/uL (0.0-0.8); Eosinophils % 1.8 %; Hematocrit 44.4 % (37.0-47.0); Hemoglobin 14.3 g/dL (11.5-15.3); Lymphocytes # 4.1 10^3/uL (0.8-4.8); Lymphocytes % 24.1 %; Mean Corpuscular HGB Conc 32.2 g/dL (30.0-36.0); Mean Corpuscular Hemoglobin 28.1 pg (28.0-34.0); Mean Corpuscular Volume 87.2 fl (81-99); Mean Platelet Volume 10.4 fL (7.4-10.4); Monocytes % 5.7 %; Neutrophils # 11.51 10^3/uL (1.8-7.7); Neutrophils % 67.5 %; Nucleated Red Blood Cells % 0 %; Platelet Count 354 10^3/cmm (130-400); Red Blood Count 5.09 10^6/uL (4.1-5.3); Red Cell Distribution Width 12.9 % (12.1-15.1)
[2021-09-17] MEDS: diphenhydrAMINE 50 mg/mL SDV 1mL 25 MG IVP (00:56)
[2021-09-17] MEDS: famotidine 20 mg/2 mL INJ 40 MG IVP (01:01)
[2021-09-17] MEDS: sodium chloride 0.9% 500 ML 999 ML IV (01:01)
[2021-09-17 03:27] VITALS: PULSE 65; RESP 17; O2SAT 99
== END 2021-09-17 02:55 | disposition home or self-care (01) ==
PROVIDERS: Emergency Provider Physician Assistant
DX: L50.9 Urticaria, unspecified (principal)
CPT/HCPCS: 85025; 96374; 96375; 99284; J1200; J2930; J3490; J7040

== ENCOUNTER → 2021-10-27 13:16 | Outpatient (BNVA) | payer MEDICAID, SELFPAY | PROVIDERS: Visit Provider Nurse Practitioner Family | DX: J32.9 Chronic sinusitis, unspecified (principal); H92.09 Otalgia, unspecified ear | CPT/HCPCS: 80053 ==

== ENCOUNTER → 2021-12-12 10:32 | Outpatient (BNVA) | payer MEDICAID, SELFPAY | PROVIDERS: Visit Provider Nurse Practitioner Family | DX: R73.9 Hyperglycemia, unspecified (principal); F41.9 Anxiety disorder, unspecified; F32.A Depression, unspecified; N94.6 Dysmenorrhea, unspecified; E66.9 Obesity, unspecified | CPT/HCPCS: 80053; 83036; 84443 ==

== ENCOUNTER → 2021-12-28 15:05 | Outpatient (BNVA) | payer MEDICAID, SELFPAY | PROVIDERS: Visit Provider Nurse Practitioner Women's Health | DX: L68.0 Hirsutism (principal); N94.3 Premenstrual tension syndrome | CPT/HCPCS: 80048 ==

== ENCOUNTER → 2022-04-28 11:45 | Outpatient (BNVA) | payer MEDICAID, SELFPAY | PROVIDERS: Visit Provider Nurse Practitioner Family | DX: F32.A Depression, unspecified (principal); F41.9 Anxiety disorder, unspecified; J06.9 Acute upper respiratory infection, unspecified; J45.909 Unspecified asthma, uncomplicated; J45.40 Moderate persistent asthma, uncomplicated; R05.9 Cough, unspecified; R59.0 Localized enlarged lymph nodes | CPT/HCPCS: 80053 ==

== ENCOUNTER 2022-06-22 13:49 | Outpatient (CLI) | payer MEDICAID, SELFPAY ==
--- NOTE | 2022-06-22 14:15 | US_ITS ---
WS: [id number] ULTRASOUND SOFT TISSUES RIGHT supraclavicular. HISTORY: enlarged lymph node neck COMPARISON: None available. TECHNIQUE: 2-D and color Doppler imaging is submitted. Ultrasound is directed to the RIGHT supraclavicular area by the patient. There are 2 benign lymph nod es. The largest lymph node measures 8 x 3 x 9 mm. Normal fatty hilum. Normal central vascularity. US/US soft tissue head neck [id number] IMPRESSION: Normal RIGHT supraclavicular lymph nodes.
== END 2022-06-22 13:50 | disposition home or self-care (01) ==
PROVIDERS: PCP Nurse Practitioner Family; Visit Provider Nurse Practitioner Family
DX: R59.0 Localized enlarged lymph nodes (principal)
CPT/HCPCS: 76536

== ENCOUNTER → 2022-10-17 13:45 | Outpatient (BNVA) | payer MEDICAID, SELFPAY | PROVIDERS: PCP Family Medicine; Visit Provider Family Medicine | DX: M25.531 Pain in right wrist (principal); Z12.4 Encounter for screening for malignant neoplasm of cervix | CPT/HCPCS: 87624 ==

== ENCOUNTER 2024-02-20 08:19 | Outpatient (CLI) | payer OTHER, SELFPAY ==
--- NOTE | 2024-02-20 08:26 | US_ITS ---
WS: [id number] ULTRASOUND SOFT TISSUES RIGHT cervical chain. HISTORY: persistent lymph node in R anterior cervical chain COMPARISON: 06/22/2022 TECHNIQUE: 2-D and color Doppler imaging is submitted. Ultrasound is directed along the RIGHT neck to the palpable abnormality by the patient. There is a be nign lymph node with normal cortex and fatty hilum measuring 1.1 x 0.7 x 0.4 cm. No lymphadenopathy. US/US soft tissue head neck [id number] IMPRESSION: Benign lymph node RIGHT cervical chain.
== END 2024-02-20 08:20 | disposition home or self-care (01) ==
LOC: RAD 08:20
PROVIDERS: PCP Family Medicine; Visit Provider Family Medicine
DX: R09.89 Other specified symptoms and signs involving the circulatory and respiratory systems (principal)
CPT/HCPCS: 76536

== ENCOUNTER → 2025-03-06 10:11 | Outpatient (BNVA) | payer OTHER, SELFPAY | PROVIDERS: PCP Family Medicine; Visit Provider Family Medicine | DX: Z00.00 Encounter for general adult medical examination without abnormal findings (principal); R59.0 Localized enlarged lymph nodes | CPT/HCPCS: 80053; 80061; 84443; 85025 ==

== ENCOUNTER 2025-03-16 14:54 | Outpatient (CLI) | payer OTHER, SELFPAY ==
--- NOTE | 2025-03-16 15:15 | USR_ITS ---
PROCEDURE INFORMATION: Exam: US Soft Tissue Head and Neck, Soft Tissue Exam date and time: 03/16/2025 3:08 PM Age: 49 years old Clinical indication: Neck pain; Additional info: Chronic enlarged right posterior chain lymphadenopathy TECHNIQUE: Imaging protocol: Real-time ultrasound scan of the head and neck with image documentation. Exam focused on the soft tissue in the region of clinical concern. COMPARISON: US soft tissue head neck [id number] 02/20/2024 8:30 AM FINDINGS: Lymph nodes: Right cervical chain there is a lymph node present 9 mm x 7 mm x 4 mm, a 2nd node is present 13 mm x 4 mm x 7 mm onto back of the head right side a lymph node is present 0 mm x 13 mm x 5 mm back of the head left side lymph node measures 7 mm x 7 mm x 4 mm. Soft tissues: Unremarkable. No fluid collections. US/US soft tissue head neck [id number] IMPRESSION: 1. Multiple benign soft tissue lymph nodes are visible 2. Otherwise Unremarkable soft tissues of the visualized head and neck.
== END 2025-03-16 14:55 | disposition home or self-care (01) ==
LOC: RAD 14:55
PROVIDERS: PCP Family Medicine; Visit Provider Family Medicine
DX: R59.0 Localized enlarged lymph nodes (principal)
CPT/HCPCS: 76536

== ENCOUNTER 2025-04-10 12:40 | Outpatient (CLI) | payer OTHER, SELFPAY | END 2025-04-10 12:41 | disposition home or self-care (01) | LOC: LAB 04-16 06:44 | PROVIDERS: PCP Family Medicine; Visit Provider Family Medicine | DX: D64.9 Anemia, unspecified (principal) | CPT/HCPCS: 82607; 82728; 83540; 85025 ==